=== PATIENT | female | born 1995 | race Caucasian/White ===

== ENCOUNTER 2019-09-24 21:12 | Observation (INO) ==
[2019-09-24] MEDS ORDERED: 0.9 % Sodium Chloride 1,000 ML IVC ONE (21:17)
[2019-09-24 21:53] LABS: Basophils % 0.5 %; Eosinophils % 0.5 %; Hematocrit 42.3 % (35.3-44.9); Immature Granulocytes % 0.3 % (0-4); Lymphocytes # 2.5 K/mcL (0.6-4.6); Lymphocytes % 32.5 %; Mean Corpuscular HGB Conc 33.1 g/dL (31.6-35.5); Mean Corpuscular Hemoglobin 30.2 pg (28.0-33.3); Mean Corpuscular Volume 91.4 fL (83.0-100.0); Mean Platelet Volume 11.7 fL (9.4-12.4); Monocytes # 0.6 K/mcL (0.0-1.3); Monocytes % 7.6 %; Neutrophils # 4.5 K/mcL (1.6-8.9); Platelet Count 250 K/mcL (140-400); Red Blood Count 4.63 M/mcL (3.82-4.97); Red Cell Distribution Width 12.2 % (11.5-14.5); Segmented Neutrophils % 58.6 %; White Blood Count 7.7 K/mcL (4.3-11.1)
[2019-09-24 21:56] LABS: Bilirubin,Urine Negative (Negative); Blood,Urine Large (Negative); Glucose,Urine (UA) Normal (Normal); Ketones,Urine Negative (Negative); Leukocyte Esterase,Urine Negative (Negative); Nitrite,Urine Negative (Negative); Protein,Urine 100 mg/dL (Neg-Trace); Prothrombin Time 11.1 Seconds (9.4-12.1); Specific Gravity,Urine 1.023 (1.010-1.025); Urobilinogen,Urine Normal (Normal)
[2019-09-24 21:57] LABS: Clarity,Urine Cloudy (Clear); Color,Urine Red (Yellow)
[2019-09-24 21:59] LABS: Activated Partial Thrombo Time 36.8 Seconds (26.0-36.0)
[2019-09-24 22:14] LABS: Alanine Aminotransferase 60 Units/L (7-52); Albumin 4.4 g/dL (3.5-5.7); Albumin/Globulin Ratio 1.6 (1.1-2.2); Alkaline Phosphatase 107 Units/L (34-104); Aspartate Amino Transferase 35 Units/L (13-39); BUN/Creatinine Ratio 11 (6-26); Bilirubin,Direct 0.1 mg/dL (0.0-0.2); Bilirubin,Indirect 0.3 mg/dL (0.0-1.0); Bilirubin,Total 0.4 mg/dL (0.3-1.0); Blood Urea Nitrogen 9 mg/dL (6-20); Calcium 9.4 mg/dL (8.6-10.3); Carbon Dioxide 26 mEq/L (23-29); Chloride 104 mEq/L (98-107); Globulin 2.8 g/dL (2.4-3.5); Glucose 87 mg/dL (70-105); Osmolality,Calculated 286 (280-300); Potassium 3.8 mEq/L (3.5-5.1); Sodium 139 mEq/L (136-145); Total Protein 7.2 g/dL (6.4-8.9); eGFR For African Americans > 60 (> 60); eGFR For Non-African Americans > 60 (> 60)
[2019-09-24 22:59] LABS: Thyroid Stimulating Hormone 4.165 mcIU/mL (0.340-5.600)
[2019-09-24 23:06] LABS: Triiodothyronine (T3) Total 1.11 ng/mL (0.87-1.78)
[2019-09-24 23:27] LABS: Candida DNA Not Detected (Not Detect); Gardnerella DNA Not Detected (Not Detect); Trichomonas DNA Not Detected (Not Detect)
[2019-09-25] MEDS ORDERED: Ibuprofen 600 MG TABLET PO PRN (02:00)
[2019-09-25] MEDS ORDERED: Ringers Solution, Lactated 1,000 ML IVC SCH (02:00)
[2019-09-25] MEDS ORDERED: *HR* OxyCODONE/APAP 5/325 TABLET PO PRN (02:01)
[2019-09-25] MEDS ORDERED: miSOPROStoL 100 MCG TABLET PO STA (02:02)
[2019-09-25 08:47] VITALS: BP 122/76
== END 2019-09-25 09:10 | disposition home or self-care (01) ==
LOC: 1NENUPED 21:12 → EMEROOARM 21:12 → 1NENUPED 09-25 02:07
PROVIDERS: ADMIT Student in an Organized Health Care Education/Training Program; ATTEND Student in an Organized Health Care Education/Training Program

== ENCOUNTER → 2020-09-21 01:26 | Observation (INO) | END | disposition home or self-care (01) | LOC: 1NENULAB | PROVIDERS: ADMIT Obstetrics & Gynecology; ATTEND Obstetrics & Gynecology ==

== ENCOUNTER 2020-09-22 00:42 | Inpatient (IN) ==
[2020-09-22 00:12] LABS: Alanine Aminotransferase 14 Units/L (7-52); Aspartate Amino Transferase 17 Units/L (13-39); BUN/Creatinine Ratio 21 (6-26); Blood Urea Nitrogen 12 mg/dL (6-20); Lactate Dehydrogenase 172 Units/L (140-271); Uric Acid 6.2 mg/dL (2.3-7.6); eGFR For African Americans > 60 (> 60); eGFR For Non-African Americans > 60 (> 60)
[2020-09-22 00:17] LABS: Basophils % 0.3 %; Eosinophils % 0.3 %; Hemoglobin 11.6 g/dL (11.5-15.4); Immature Granulocytes % 0.7 % (0-4); Immature Platelets 18.3 % (1.1-6.1); Lymphocytes # 2.1 K/mcL (0.6-4.6); Lymphocytes % 23.1 %; Mean Corpuscular HGB Conc 32.2 g/dL (31.6-35.5); Mean Corpuscular Hemoglobin 28.9 pg (28.0-33.3); Mean Corpuscular Volume 89.8 fL (83.0-100.0); Mean Platelet Volume 13.9 fL (9.4-12.4); Monocytes # 0.6 K/mcL (0.0-1.3); Monocytes % 6.9 %; Neutrophils # 6.3 K/mcL (1.6-8.9); Platelet Count 218 K/mcL (140-400); Red Blood Count 4.01 M/mcL (3.82-4.97); Red Cell Distribution Width 12.6 % (11.5-14.5); Segmented Neutrophils % 68.7 %; White Blood Count 9.2 K/mcL (4.3-11.1)
[2020-09-22 00:36] LABS: Protein/Creatinine Ratio,Urine 3.76 mg/mg (0.00-0.20)
[~2020-09-22 00:42] MED LIST: *HR* Labetalol 20 MG/4 ML SYRINGE IVP ONE; *HR* Labetalol 20 MG/4 ML SYRINGE IVP PRN
[2020-09-22] MEDS ORDERED: Naloxone 0.4 MG/ML INJ IVP PRN ×2 (01:01→04:54)
[2020-09-22] MEDS ORDERED: Famotidine 20 MG/2 ML VIAL IVP PRN (01:01)
[2020-09-22] MEDS ORDERED: Ondansetron 4 MG/2 ML VIAL IVP PRN ×2 (01:01→04:54)
[2020-09-22] MEDS ORDERED: *HR* Nalbuphine 10 MG/ML AMPUL IV PRN (01:01)
[2020-09-22] MEDS ORDERED: Metoclopramide 10 MG/2 ML VIAL IVP PRN (01:01)
[2020-09-22] MEDS ORDERED: miSOPROStoL 25 MCG TABLET PO PRN (01:03)
[2020-09-22] MEDS ORDERED: Ringers Solution, Lactated 1,000 ML IVC SCH (01:15)
[2020-09-22] MEDS ORDERED: EPHEDrine 50 MG/ML VIAL IVP PRN (04:54)
[2020-09-22] MEDS ORDERED: Ropivacaine/PF 0.2% 20 ML VIAL EP ONE (04:54)
[2020-09-22] MEDS ORDERED: Oxytocin 20 units/ LR 1000 mL 20 UNIT/1,000 ML BAG IVC SCH (05:00)
[2020-09-22] MEDS ORDERED: Epidural Premix (fent/bupiv) 110 ML EP SCH (05:00)
[2020-09-22] MEDS ORDERED: Epidural Premix (fent/bupiv) 110 ML EP ONE (05:06)
[2020-09-22] MEDS: Magnesium Sulf 20 gm/SW 500mL 20 GM/500 ML IV.SOLN IVC SCH ×2 (08:39→16:40)
[2020-09-22] MEDS ORDERED: Calcium Gluconate 1,000 MG/10 ML VIAL IVP PRN (08:55)
[2020-09-22] MEDS ORDERED: Ropivacaine/PF 0.2% 20 ML VIAL ONE ×2 (10:58→16:44)
[2020-09-22] MEDS ORDERED: Acetaminophen 325 MG TABLET PO ONE (11:59)
[2020-09-22] MEDS ORDERED: *HR* Labetalol 20 MG/4 ML SYRINGE IVP ONE ×2 (16:19→16:26)
[2020-09-22] MEDS ORDERED: *HR* FentaNYL (PF) 100 MCG/2 ML VIAL ONE (16:44)
[2020-09-22] MEDS ORDERED: miSOPROStoL 100 MCG TABLET RC ONE (18:06)
[2020-09-22] MEDS ORDERED: Acetaminophen 325 MG TABLET PO PRN (18:36)
[2020-09-22 20:51] LABS: INR 0.9; Prothrombin Time 10.6 Seconds (9.4-12.1)
[2020-09-22 20:53] LABS: Activated Partial Thrombo Time 24.9 Seconds (26.0-36.0)
[2020-09-23] MEDS ORDERED: Ibuprofen 600 MG TABLET PO ONE (00:26)
[2020-09-23] MEDS ORDERED: *HR* OxyCODONE Immed Rel 5 MG TABLET PO PRN (00:40)
[2020-09-23] MEDS ORDERED: Measles/Mumps/Rubella Vacc 0.5 ML VIAL SQ PRN (00:40)
[2020-09-23] MEDS ORDERED: Rho Immune Globulin 1,500 UNIT SYRINGE IM PRN (00:40)
[2020-09-23] MEDS ORDERED: Benzocaine/Menthol 56 GM AEROSOL SPRAY TP PRN (00:40)
[2020-09-23] MEDS ORDERED: Lanolin 7 G OINT...G. TP PRN (00:40)
[2020-09-23] MEDS: Acetaminophen 325 MG TABLET PO PRN ×4 (00:53→20:24)
[2020-09-23] MEDS: Azithromycin 250 MG TABLET PO SCH (01:24)
[2020-09-23] MEDS: Magnesium Sulf 20 gm/SW 500mL 20 GM/500 ML IV.SOLN IVC SCH ×2 (04:14→20:03)
[2020-09-23 04:46] LABS: Protein/Creatinine Ratio,Urine 0.5 mg/mg (0.00-0.20)
[2020-09-23 04:54] LABS: Basophils % 0.1 %; Segmented Neutrophils % 85.3 %
[2020-09-23 04:56] LABS: Hemoglobin 8.7 g/dL (11.5-15.4); Immature Granulocytes % 0.7 % (0-4); Immature Platelets 14.8 % (1.1-6.1); Lymphocytes # 1.4 K/mcL (0.6-4.6); Lymphocytes % 7.5 %; Mean Corpuscular HGB Conc 33.5 g/dL (31.6-35.5); Mean Corpuscular Volume 89.7 fL (83.0-100.0); Mean Platelet Volume 13.7 fL (9.4-12.4); Monocytes # 1.2 K/mcL (0.0-1.3); Monocytes % 6.4 %; Neutrophils # 16.3 K/mcL (1.6-8.9); Platelet Count 182 K/mcL (140-400); Red Cell Distribution Width 12.6 % (11.5-14.5); White Blood Count 19.1 K/mcL (4.3-11.1)
[2020-09-23 05:11] LABS: Magnesium 6.1 mg/dL (1.6-2.6)
[2020-09-23 06:08] LABS: Alanine Aminotransferase 12 Units/L (7-52); Aspartate Amino Transferase 21 Units/L (13-39); BUN/Creatinine Ratio 16 (6-26); Blood Urea Nitrogen 12 mg/dL (6-20); Lactate Dehydrogenase 255 Units/L (140-271); Uric Acid 6.6 mg/dL (2.3-7.6); eGFR For African Americans > 60 (> 60); eGFR For Non-African Americans > 60 (> 60)
[2020-09-23] MEDS: Ibuprofen 600 MG TABLET PO SCH ×3 (06:19→20:24)
[2020-09-23] MEDS ORDERED: Ondansetron ODT 4 MG TAB.RAPDIS SL PRN (09:00)
[2020-09-23] MEDS: Prenatal Vit/FA 1 EACH TABLET PO SCH (09:41)
[2020-09-23] MEDS: metroNIDAZOLE 500 MG TABLET PO SCH ×3 (09:42→21:12)
[2020-09-23] MEDS: Oxytocin 20 units/ LR 1000 mL 20 UNIT/1,000 ML BAG IVC SCH ×2 (09:42→16:57)
[2020-09-23] MEDS: Sennosides/Docusate Sodium TABLET PO SCH (23:43)
[2020-09-24] MEDS: Azithromycin 250 MG TABLET PO SCH (01:40)
[2020-09-24] MEDS: Ibuprofen 600 MG TABLET PO SCH ×3 (02:24→15:14)
[2020-09-24] MEDS: Acetaminophen 325 MG TABLET PO PRN ×2 (02:24→15:14)
[2020-09-24] MEDS: Famotidine 20 MG TABLET PO SCH ×2 (03:00→16:52)
[2020-09-24 07:15] LABS: Aspartate Amino Transferase 25 Units/L (13-39); eGFR For African Americans > 60 (> 60); eGFR For Non-African Americans > 60 (> 60)
[2020-09-24 07:49] LABS: Hematocrit 23.6 % (35.3-44.9); Hemoglobin 7.6 g/dL (11.5-15.4); Mean Corpuscular HGB Conc 32.2 g/dL (31.6-35.5); Mean Corpuscular Hemoglobin 29.2 pg (28.0-33.3); Mean Corpuscular Volume 90.8 fL (83.0-100.0); Platelet Count 201 K/mcL (140-400); White Blood Count 11.7 K/mcL (4.3-11.1)
[2020-09-24] MEDS: metroNIDAZOLE 500 MG TABLET PO SCH ×2 (08:25→15:13)
[2020-09-24] MEDS: Sennosides/Docusate Sodium TABLET PO SCH (08:25)
[2020-09-24] MEDS: Prenatal Vit/FA 1 EACH TABLET PO SCH (08:25)
[2020-09-24] MEDS ORDERED: Ferumoxytol 510 MG in 0.9 % Sodium Chloride 100 ML IVPB ONE (09:27)
[2020-09-24] MEDS ORDERED: miSOPROStoL 100 MCG TABLET PO STA (09:33)
[2020-09-24] MEDS ORDERED: MOM Conc 10 ML UD.LIQ PO ONE (09:54)
[2020-09-24] MEDS ORDERED: 0.9 % Sodium Chloride 500 ML IV ONE (10:23)
[2020-09-24] MEDS: miSOPROStoL 100 MCG TABLET PO SCH ×2 (15:07→16:53)
[2020-09-24 15:25] VITALS: BP 135/85
== END 2020-09-24 18:07 | disposition home or self-care (01) | DRG 768 ==
LOC: 1NENULAB → 1NENUOBS 09-23 03:22
PROVIDERS: ADMIT Obstetrics & Gynecology; ATTEND Obstetrics & Gynecology